=== PATIENT | male | born 1985 | race Caucasian/White ===

== ENCOUNTER 2017-09-06 10:14 | Emergency (ER) | payer OTHER ==
[~2017-09-06] VITALS: Ht 180.3 cm; Wt 96.0 kg
[~2017-09-06 10:14] MED LIST: ALBU17I INH; AMOX500T PO; IBUP-232 PO; LORT5TAB PO; METR0.7514 PV; ZITH250T PO
[2017-09-06 10:38] VITALS: BP 132/78; PULSE 70; RESP 16; TEMP 98.8; O2SAT 99
[2017-09-06] MEDS ORDERED: IBUP-1129 (11:02)
[2017-09-06] MEDS ORDERED: KETOROLAC TROMETHAMINE 60 MG/2 ML (IM) VIAL IM ONE (11:30)
[2017-09-06] MEDS ORDERED: ORPHENADRINE INJ 60 MG/2 ML AMP IM ONE (11:30)
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
[2017-09-06 12:41] VITALS: RESP 17
== END 2017-09-06 12:50 | disposition home or self-care (01) ==
LOC: PHEFT 10:14
DX: M54.6 Pain in thoracic spine (principal); M54.2 Cervicalgia; V89.2XXA Person injured in unspecified motor-vehicle accident, traffic, initial encounter
CPT/HCPCS: 72125; 72128; 96372; 99285; J1885; J2360